=== PATIENT | female | born 1985 | race Two or more races ===

== ENCOUNTER 2022-02-20 21:56 | Inpatient (IN) | payer MEDICAID ==
[~2022-02-20] VITALS: Ht 165.1 cm; Wt 112.0 kg
[~2022-02-20 21:56] MED LIST: ALBU0.084
[2022-02-20] MEDS ORDERED: MORPHINE SULFATE 4 MG/ML SYR/VIAL IV ONE (23:00)
[2022-02-20] MEDS ORDERED: ONDANSETRON HCL 4 MG/2 ML VIAL IV ONE (23:00)
[2022-02-20 23:26] LABS: Hemoglobin 13.2 g/dL (12.2-16.2); Nucleated Red Blood Cells % 0.1 %
[2022-02-20 23:27] LABS: Basophils # (auto) 0.1 10 ^3/uL (0-0.2); Basophils % (auto) 0.6 % (0.0-2.0); Eosinophils # (auto) 0.1 10 ^3/uL (0-0.8); Eosinophils % (auto) 0.8 % (0.0-7.0); Hematocrit 40.9 % (36.0-46.0); Lymphocytes # (auto) 1.3 10 ^3/uL (0.4-5.4); Lymphocytes % (auto) 10.7 % (10.0-50.0); Mean Corpuscular Hemoglobin 26.2 pg (28.0-32.0); Mean Corpuscular Hgb Conc. 32.2 g/dL (32.0-36.0); Mean Corpuscular Volume 81.3 fL (80.0-100.0); Monocytes # (auto) 0.4 10 ^3/uL (0-1.3); Monocytes % (auto) 2.9 % (0.0-12.0); Neutrophils # (auto) 10.4 10 ^3/uL (1.6-8.6); Red Blood Cells 5.03 10^6/uL (4.0-5.20); Red Cell Distribution Width 15.7 % (11.8-14.3); White Blood Cell 12.2 10^3/uL (4.4-10.8)
[2022-02-20 23:45] LABS: Albumin 3.7 g/dL (3.4-5.0); Calcium 8.9 mg/dL (8.5-10.1); Potassium 4.1 mmol/L (3.5-5.1)
[2022-02-20 23:48] LABS: Bilirubin, Total 4.6 mg/dL (0.2-1.0); Total Protein 8.1 g/dL (6.4-8.2)
[2022-02-21] MEDS ORDERED: MORPHINE SULFATE 4 MG/ML SYR/VIAL IV ONE (00:15)
[2022-02-21] MEDS ORDERED: PIPERACILLIN-TAZOB 3.375GM 100 ML IV ONE (00:30)
[2022-02-21] MEDS ORDERED: SODIUM CHLORIDE 0.9% 2,000 ML IV ONE (00:30)
[2022-02-21] MEDS ORDERED: IBUPROFEN 600 MG TAB PO PRN (01:30)
[2022-02-21] MEDS ORDERED: DEXTROSE (50%) 50ML SYRG IV PRN (01:30)
[2022-02-21] MEDS ORDERED: TEMAZEPAM 15 MG CAP PO PRN (01:30)
[2022-02-21] MEDS ORDERED: SODIUM CHLORIDE 0.9% 1,000 ML IV SCH (01:30)
[2022-02-21] MEDS ORDERED: ONDANSETRON HCL 4 MG/2 ML VIAL IV PRN (01:30)
[2022-02-21] MEDS ORDERED: PIPERACILLIN-TAZOB 3.375GM 100 ML IV SCH (06:00)
[2022-02-21] MEDS ORDERED: metroNIDAZOLE 500MG/100ML 100 ML IV SCH (06:00)
[2022-02-21 06:13] LABS: Basophils # (auto) 0.1 10 ^3/uL (0-0.2); Basophils % (auto) 0.6 % (0.0-2.0); Eosinophils # (auto) 0 10 ^3/uL (0-0.8); Eosinophils % (auto) 0.4 % (0.0-7.0); Hematocrit 37.9 % (36.0-46.0); Hemoglobin 12.6 g/dL (12.2-16.2); Lymphocytes # (auto) 1.5 10 ^3/uL (0.4-5.4); Lymphocytes % (auto) 13.5 % (10.0-50.0); Mean Corpuscular Hgb Conc. 33.3 g/dL (32.0-36.0); Monocytes # (auto) 0.5 10 ^3/uL (0-1.3); Monocytes % (auto) 4.4 % (0.0-12.0); Neutrophils # (auto) 8.9 10 ^3/uL (1.6-8.6); Neutrophils % (auto) 81.1 % (37.0-80.0); Red Blood Cells 4.68 10^6/uL (4.0-5.20); Red Cell Distribution Width 15.9 % (11.8-14.3)
[2022-02-21] MEDS: MORPHINE SULFATE INJ 2 MG/ml SYRG IV PRN ×2 (06:20→14:20)
[2022-02-21 06:30] LABS: Albumin 3.5 g/dL (3.4-5.0); BUN/Creatinine Ratio 14.1; Potassium 3.9 mmol/L (3.5-5.1)
[2022-02-21 06:41] LABS: Total Protein 6.9 g/dL (6.4-8.2)
[2022-02-21] MEDS ORDERED: HYDROmorphone HCL 2 MG/ML VL/or syr IV ONE (06:45)
[2022-02-21] MEDS ORDERED: NITROGLYCERIN 0.4 MG SL TAB SL PRN (06:45)
[2022-02-21] MEDS ORDERED: MORPHINE SULFATE INJ 2 MG/ml SYRG IV PRN (06:45)
[2022-02-21] MEDS: ACCU-CHEK COMFORT CURVE STRIP VI SCH ×4 (06:52→22:00)
[2022-02-21] MEDS: InsuLIN REG 1unit/0.01ml Soln (100units/ml) SC SCH ×4 (06:53→22:00)
[2022-02-21 09:07] LABS: INR 0.94 (0.9-1.15); Partial Thromboplastin Time 29.3 sec (24.6-33.4)
[2022-02-21] MEDS ORDERED: CEFTRIAXONE SODIUM 2 GM in D5W 5% 50 ML IV SCH (10:00)
[2022-02-21] MEDS ORDERED: FAMOTIDINE (10MG/ML) 2ML VL IV SCH ×2 (10:00)
[2022-02-21] MEDS: SODIUM CHLORIDE 0.9% 1,000 ML IV SCH ×2 (15:04→23:35)
[2022-02-21] MEDS: PIPERACILLIN-TAZOB 3.375GM 100 ML IV SCH ×3 (15:04→23:40)
[2022-02-21 20:00] VITALS: BP 108/66
[2022-02-21 20:57] LABS: Urine Bacteria NONE SEEN /hpf (None Seen); Urine Blood Negative /uL (Negative); Urine Specific Gravity 1.022 (1.001-1.035); Urine WBC 32 /hpf (0 - 5)
[2022-02-21 22:00] VITALS: BP 108/66
[2022-02-22] MEDS: SODIUM CHLORIDE 0.9% 1,000 ML IV SCH ×5 (01:30→21:30)
[2022-02-22] MEDS: MORPHINE SULFATE INJ 2 MG/ml SYRG IV PRN ×2 (03:38→09:09)
[2022-02-22 05:00] VITALS: BP 100/53
[2022-02-22] MEDS: ACCU-CHEK COMFORT CURVE STRIP VI SCH ×4 (05:33→23:14)
[2022-02-22] MEDS: InsuLIN REG 1unit/0.01ml Soln (100units/ml) SC SCH ×4 (05:33→22:00)
[2022-02-22] MEDS: PIPERACILLIN-TAZOB 3.375GM 100 ML IV SCH ×3 (05:34→18:17)
[2022-02-22 06:43] LABS: Basophils # (auto) 0.1 10 ^3/uL (0-0.2); Basophils % (auto) 0.6 % (0.0-2.0); Eosinophils # (auto) 0.1 10 ^3/uL (0-0.8); Eosinophils % (auto) 1.2 % (0.0-7.0); Hematocrit 35.5 % (36.0-46.0); Hemoglobin 11.7 g/dL (12.2-16.2); Lymphocytes # (auto) 1.3 10 ^3/uL (0.4-5.4); Mean Corpuscular Hemoglobin 26.3 pg (28.0-32.0); Mean Corpuscular Hgb Conc. 32.9 g/dL (32.0-36.0); Mean Corpuscular Volume 79.9 fL (80.0-100.0); Monocytes # (auto) 0.3 10 ^3/uL (0-1.3); Monocytes % (auto) 4.1 % (0.0-12.0); Neutrophils # (auto) 6.4 10 ^3/uL (1.6-8.6); Neutrophils % (auto) 78.1 % (37.0-80.0); Red Blood Cells 4.44 10^6/uL (4.0-5.20); Red Cell Distribution Width 15.6 % (11.8-14.3); White Blood Cell 8.2 10^3/uL (4.4-10.8)
[2022-02-22 06:59] LABS: Potassium 3.4 mmol/L (3.5-5.1)
[2022-02-22 07:10] LABS: Bilirubin, Direct 2.9 mg/dL (0-0.2); Bilirubin, Total 3.4 mg/dL (0.2-1.0); Total Protein 6.1 g/dL (6.4-8.2)
[2022-02-22 07:13] LABS: Albumin 2.9 g/dL (3.4-5.0); BUN/Creatinine Ratio 14.8; Bilirubin, Total 3.4 mg/dL (0.2-1.0); Calcium 8.5 mg/dL (8.5-10.1); Total Protein 6.2 g/dL (6.4-8.2)
[2022-02-22 08:00] VITALS: BP 112/74
[2022-02-22 08:41] VITALS: BP 112/74
[2022-02-22 13:27] VITALS: BP 117/57
[2022-02-22 17:19] VITALS: BP 120/75
[2022-02-22] MEDS: ACETAMINOPHEN 325 MG TAB PO PRN (18:18)
[2022-02-22 21:57] VITALS: BP 116/67
[2022-02-23] MEDS: PIPERACILLIN-TAZOB 3.375GM 100 ML IV SCH ×4 (00:13→21:00)
[2022-02-23] MEDS: SODIUM CHLORIDE 0.9% 1,000 ML IV SCH ×5 (02:37→22:30)
[2022-02-23 04:53] VITALS: BP 100/50
[2022-02-23 05:54] LABS: Albumin 2.9 g/dL (3.4-5.0)
[2022-02-23 06:05] LABS: Bilirubin, Direct 0.8 mg/dL (0-0.2); Bilirubin, Total 1.5 mg/dL (0.2-1.0)
[2022-02-23] MEDS: InsuLIN REG 1unit/0.01ml Soln (100units/ml) SC SCH ×4 (06:50→22:00)
[2022-02-23] MEDS: ACCU-CHEK COMFORT CURVE STRIP VI SCH ×4 (06:51→22:00)
[2022-02-23 09:00] VITALS: BP 124/72
[2022-02-23] MEDS ORDERED: POTASSIUM CHLORIDE 40 MEQ, LIDOCAINE 1% (LOCAL ANESTH.) 4 ML in SODIUM CHL 0.9% 250 ML IV ONE (12:30)
[2022-02-23] MEDS: ACETAMINOPHEN 325 MG TAB PO PRN ×2 (12:49→21:27)
[2022-02-23 12:51] VITALS: BP 116/65
[2022-02-23 17:00] VITALS: BP 103/43
[2022-02-23 21:49] VITALS: BP 106/50
[2022-02-24] MEDS: PIPERACILLIN-TAZOB 3.375GM 100 ML IV SCH ×3 (01:07→11:28)
[2022-02-24] MEDS: SODIUM CHLORIDE 0.9% 1,000 ML IV SCH ×3 (03:30→13:26)
[2022-02-24 04:52] VITALS: BP 104/64
[2022-02-24 06:29] LABS: Albumin 2.8 g/dL (3.4-5.0); BUN/Creatinine Ratio 8.5; Calcium 8.3 mg/dL (8.5-10.1); Potassium 3.3 mmol/L (3.5-5.1)
[2022-02-24 06:33] LABS: Bilirubin, Total 0.9 mg/dL (0.2-1.0); Total Protein 6.7 g/dL (6.4-8.2)
[2022-02-24] MEDS: ACCU-CHEK COMFORT CURVE STRIP VI SCH ×2 (06:36→10:58)
[2022-02-24] MEDS: InsuLIN REG 1unit/0.01ml Soln (100units/ml) SC SCH ×2 (06:36→10:58)
[2022-02-24 06:40] LABS: Eosinophils # (auto) 0.1 10 ^3/uL (0-0.8); Hemoglobin 11.4 g/dL (12.2-16.2); Lymphocytes # (auto) 1.4 10 ^3/uL (0.4-5.4); Mean Corpuscular Hemoglobin 26.8 pg (28.0-32.0); Monocytes # (auto) 0.3 10 ^3/uL (0-1.3)
[2022-02-24 06:43] LABS: Bilirubin, Direct 0.6 mg/dL (0-0.2)
[2022-02-24 06:47] LABS: Basophils # (auto) 0 10 ^3/uL (0-0.2); Basophils % (auto) 0.6 % (0.0-2.0); Eosinophils % (auto) 1.6 % (0.0-7.0); Hematocrit 34.2 % (36.0-46.0); Lymphocytes % (auto) 20.3 % (10.0-50.0); Mean Corpuscular Hgb Conc. 33.4 g/dL (32.0-36.0); Mean Corpuscular Volume 80.5 fL (80.0-100.0); Monocytes % (auto) 4.6 % (0.0-12.0); Neutrophils % (auto) 72.9 % (37.0-80.0); Red Blood Cells 4.25 10^6/uL (4.0-5.20); White Blood Cell 6.8 10^3/uL (4.4-10.8)
[2022-02-24 08:00] VITALS: BP 99/55
[2022-02-24 12:00] VITALS: BP 117/67
[2022-02-24 16:00] VITALS: BP 108/55
[2022-02-24 22:00] VITALS: BP 111/61
[2022-02-25 05:00] VITALS: BP 101/54
[2022-02-25 07:10] LABS: Albumin 2.9 g/dL (3.4-5.0); Bilirubin, Direct 0.4 mg/dL (0-0.2); Bilirubin, Total 0.9 mg/dL (0.2-1.0)
[2022-02-25 09:10] VITALS: BP 95/48
[2022-02-25 11:22] VITALS: BP 95/48
== END 2022-02-25 12:20 | disposition home or self-care (01) ==
LOC: ER 21:56 → OVERFLOW 02-21 06:41 → WEST WING 02-21 17:47
PROVIDERS: ADMIT Nurse Practitioner Family; ATTEND Student in an Organized Health Care Education/Training Program
DX: K80.40 Calculus of bile duct with cholecystitis, unspecified, without obstruction (principal); K85.10 Biliary acute pancreatitis without necrosis or infection; J45.909 Unspecified asthma, uncomplicated; R73.9 Hyperglycemia, unspecified; Z20.822 Contact with and (suspected) exposure to COVID-19; Z98.891 History of uterine scar from previous surgery
CPT/HCPCS: 36415; 74176; 74181; 76705; 80048; 80053; 80076; 81001; 82150; 82962; 83690; 84702; 85025; 85610; 85730; 96365; 96375; G0378; J0696; J2001; J2405; J2543; J7060

== ENCOUNTER 2023-01-01 14:39 | Emergency (ER) | payer MEDICAID ==
[~2023-01-01] VITALS: Ht 162.6 cm; Wt 112.3 kg
[2023-01-01 15:19] LABS: Basophils # (auto) 0.1 10 ^3/uL (0-0.2); Basophils % (auto) 0.7 % (0.0-2.0); Eosinophils # (auto) 0.2 10 ^3/uL (0-0.8); Eosinophils % (auto) 1.6 % (0.0-7.0); Hematocrit 36.7 % (36.0-46.0); Hemoglobin 12.7 g/dL (12.2-16.2); Lymphocytes # (auto) 2.3 10 ^3/uL (0.4-5.4); Lymphocytes % (auto) 21.7 % (10.0-50.0); Mean Corpuscular Hemoglobin 29.8 pg (28.0-32.0); Mean Corpuscular Hgb Conc. 34.6 g/dL (32.0-36.0); Mean Corpuscular Volume 86.1 fL (80.0-100.0); Monocytes # (auto) 0.4 10 ^3/uL (0-1.3); Monocytes % (auto) 3.6 % (0.0-12.0); Neutrophils # (auto) 7.8 10 ^3/uL (1.6-8.6); Neutrophils % (auto) 72.4 % (37.0-80.0); Nucleated Red Blood Cells % 0.3 %; Red Blood Cells 4.27 10^6/uL (4.0-5.20); Red Cell Distribution Width 14.5 % (11.8-14.3); White Blood Cell 10.8 10^3/uL (4.4-10.8)
[2023-01-01 15:38] LABS: Alanine Aminotransferase 18 U/L (7-40); Albumin 4.4 g/dL (3.2-4.8); Alkaline Phosphatase 89 U/L (46-116); Anion Gap 5.3 (5-15); Aspartate Aminotransferase < 8 U/L (13-40); Blood Urea Nitrogen 11 mg/dL (9-23); Calcium 8.9 mg/dL (8.5-10.1); Carbon Dioxide 27.7 mmol/L (20-30); Chloride 106 mmol/L (98-107); Glucose 84 mg/dL (74-106); Lipase 41 U/L (12-53); Potassium 3.7 mmol/L (3.5-5.1); Sodium 139 mmol/L (136-145)
[2023-01-01 15:39] LABS: Bilirubin, Total 0.4 mg/dL (0.2-1.0); Total Protein 6.7 g/dL (5.7-8.2)
[2023-01-01] MEDS ORDERED: NAPR-1334 PO (17:30)
[2023-01-01 17:37] VITALS: BP 108/68; PULSE 83; RESP 17; TEMP 97.6; O2SAT 100
== END 2023-01-01 17:42 | disposition home or self-care (01) ==
LOC: ER 14:39
DX: R07.89 Other chest pain (principal); R10.2 Pelvic and perineal pain; J45.909 Unspecified asthma, uncomplicated; Z79.899 Other long term (current) drug therapy
CPT/HCPCS: 36415; 71045; 80053; 83690; 84484; 84702; 85025; 85379; 93005